=== PATIENT | female | born 1980 | race Caucasian/White ===

== ENCOUNTER 2017-04-06 20:07 | Emergency (ER) | payer OTHER ==
[~2017-04-06] VITALS: Ht 157.5 cm; Wt 52.2 kg
--- NOTE | 2017-04-06 20:51 | NUR ---
Pt to room with family. Pt c/o severe mid abd pain for two days. Pt was seen in another ER yesterday for same complaints and dc'd home with RX. Pt sts no relief from RX. Pt resting in position of comfort for self, family at bedside. Awaiting further eval.
[2017-04-06] MEDS: FAMOTIDINE 20 MG TABLET PO ONE (22:48)
[2017-04-06] MEDS: MAG HYDROX/AL HYDROX/SIMETH 30 ML LIQUID UDC PO ONE (22:48)
--- NOTE | 2017-04-06 22:51 | NUR ---
Pt medicated for discomfort, will monitor for effects of medication. Lab at bedside.
[2017-04-06] MEDS ORDERED: MAG HYDROX/AL HYDROX/SIMETH 30 ML LIQUID UDC ONE (22:56)
[2017-04-06] MEDS ORDERED: FAMOTIDINE 20 MG TABLET ONE (22:56)
[2017-04-06 23:08] LABS: BASOPHILS % (AUTO) 0.5 % (0.0-2.0); EOSINOPHILS # (AUTO) 0.4 K/uL (0.0-0.7); HEMATOCRIT 38.9 % (37-47); LYMPHOCYTES # (AUTO) 2.1 K/UL (0.8-4.8); LYMPHOCYTES % (AUTO) 23.7 % (20.5-51.5); MEAN CORPUSCULAR HEMOGLOBIN 30.8 UUG (27.0-31.0); MEAN CORPUSCULAR HGB CONC 33 g/dL (32.0-37.0); MEAN CORPUSCULAR VOLUME 92.2 FL (81.0-99.0); MONOCYTES # (AUTO) 0.6 K/UL (0.1-1.30); MONOCYTES % (AUTO) 7.2 % (0.0-11.0); NEUTROPHILS # (AUTO) 5.7 K/UL (1.8-8.9); NEUTROPHILS % (AUTO) 64.6 % (38.5-71.5); PLATELET COUNT (AUTO) 326 K/UL (150-450); RED BLOOD CELL COUNT(AUTO) 4.22 MIL/UL (4.2-5.4); WHITE BLOOD COUNT (AUTO) 8.8 K/UL (4.0-11.2)
[2017-04-06 23:12] LABS: *BILIRUBIN,URIN NEGATIVE (NEGATIVE); *BLOOD, URINE NEGATIVE (NEGATIVE); *CLARITY,URINE CLEAR (CLEAR); *COLOR,URINE YELLOW (YELLOW); *KETONES,URINE NEGATIVE (NEGATIVE); *PROTEIN,URINE NEGATIVE (NEGATIVE); *UROBILINOGEN,URINE 0.2 E.U./dl (NORMAL); LEUKOCYTE ESTERASE ,URINE NEGATIVE (NEGATIVE); NITRITE, URINE NEGATIVE (NEGATIVE); PH,URINE 7.5 (5.0-8.0); UGLUCOSE NEGATIVE (NEGATIVE)
[2017-04-06 23:21] LABS: BACTERIA,URINE FEW /HPF (NONE SEEN); RBC,URINE 0-3 /HPF (0-3); SQUAMOUS EPITHELIAL CELL,UR FEW /HPF (NONE SEEN); WBC,URINE 0-3 /HPF (0-3)
[2017-04-06 23:24] LABS: BILIRUBIN,DIRECT 0.1 mg/dL (0.0-0.2); BILIRUBIN,TOTAL 0.3 mg/dL (0.2-1.0); CREATININE 0.8 mg/dL (0.6-1.3); POTASSIUM 4.3 mmol/L (3.5-5.1); TOTAL PROTEIN, SERUM 7.5 g/dL (6.4-8.2)
--- NOTE | 2017-04-06 23:28 | NUR ---
Pt resting in position of comfort for self. No complaints at this time. Awaiting re-evaluation and disposition
--- NOTE | 2017-04-06 23:58 | NUR ---
Pt stable for discharge per MD. Pt given ACI. Pt verbalized understanding of dc instructions. Pt ambulated out of er with steady gait.
[2017-04-06 23:59] VITALS: BP 111/69
== END 2017-04-07 00:01 | disposition home or self-care (01) ==
LOC: ER 20:12
DX: R10.13 Epigastric pain (principal); F10.20 Alcohol dependence, uncomplicated
CPT/HCPCS: 36415; 83690; 84703; 85025; A4663

== ENCOUNTER 2018-10-11 03:16 | Emergency (ER) | payer OTHER ==
[~2018-10-11] VITALS: Ht 157.5 cm; Wt 53.5 kg
[2018-10-11 03:26] LABS: *BILIRUBIN,URIN NEGATIVE (NEGATIVE); *BLOOD, URINE 1+ (NEGATIVE); *CLARITY,URINE CLOUDY (CLEAR); *COLOR,URINE Orange (YELLOW); *KETONES,URINE TRACE (NEGATIVE); *PROTEIN,URINE 2+ (NEGATIVE); LEUKOCYTE ESTERASE ,URINE 3+ (NEGATIVE); NITRITE, URINE POSITIVE (NEGATIVE); UGLUCOSE TRACE (NEGATIVE)
--- NOTE | 2018-10-11 03:33 | NUR ---
PT A/OX4, PRESENTS TO THE ER C/O DYSURIA X 1 DAY. VSS. PT DENIES C/P, SOB, N/V/D, DIZZINESS, HEADACHE. URINE SPECIMEN COLLECTED AND SENT TO LAB.
[2018-10-11 03:42] LABS: *URINE HCG, QUAL NEGATIVE (NEGATIVE); BACTERIA,URINE MANY /HPF (NONE SEEN); WBC,URINE TNTC /HPF (0-3)
--- NOTE | 2018-10-11 03:52 | NUR ---
LIDA TAVERA AT BEDSIDE FOR PT UPDATE.
[2018-10-11] MEDS ORDERED: SULFAMETH/TRIMETH 800/160 MG TABLET ONE (03:58)
[2018-10-11] MEDS ORDERED: SULFAMETH/TRIMETH 800/160 MG TABLET PO ONE (04:00)
[2018-10-11 04:03] VITALS: BP 112/68
--- NOTE | 2018-10-11 04:03 | NUR ---
Patient discharged to home in stable conditon. Written and verbal after care instructions given. Patient verbalizes understanding of instructions. PT D/C W/ PRESCRIPTION. ALL BELONGINGS W/ PT. PT SELF-AMBULATED W/O DIFFICULTY.
== END 2018-10-11 04:04 | disposition home or self-care (01) ==
LOC: ER 03:18
DX: N39.0 Urinary tract infection, site not specified (principal)
CPT/HCPCS: 84703; A4663